=== PATIENT | male | born 1985 | race Caucasian/White ===

== ENCOUNTER 2023-07-20 07:08 | Day surgery (SDC) | payer BC ==
[2023-07-19 15:05] VITALS: BMI 28.5
[2023-07-20] MEDS ORDERED: BUPIVACAINE HCL/EPINEPHRINE/PF 30 ML VIAL IJ ONE (07:34)
[2023-07-20] MEDS ORDERED: PROPOFOL 20 ML ONE ×2 (09:07→11:48)
[2023-07-20] MEDS ORDERED: MIDAZOLAM HCL 2 MG/2 ML SINGLE DOSE VIAL ONE ×2 (09:07→10:06)
[2023-07-20] MEDS ORDERED: ePHEDrine SULFATE 50 MG/1 ML AMPULE ONE (10:49)
[2023-07-20] MEDS ORDERED: DEXAMETHASONE SOD PHOSPHATE 4 MG/1 ML VIAL ONE (10:49)
[2023-07-20] MEDS ORDERED: ceFAZolin SODIUM 1 GM VIAL ONE (10:49)
[2023-07-20] MEDS ORDERED: ONDANSETRON 4 MG/2 ML VIAL ONE (10:49)
[2023-07-20] MEDS ORDERED: KETOROLAC TROMETHAMINE 30 MG/1 ML VIAL ONE (10:49)
[2023-07-20] MEDS ORDERED: ACETAMINOPHEN INJECTION 100 ML IVPB ONE (12:12)
[2023-07-20] MEDS ORDERED: PROMETHAZINE HCL 25 MG/1 ML VIAL IVPB PRN (12:15)
[2023-07-20] MEDS ORDERED: oxyCODONE HCL 5 MG TABLET PO PRN (12:15)
[2023-07-20] MEDS ORDERED: LACTATED RINGERS SOLUTION 1,000 ML IV SCH (12:15)
[2023-07-20] MEDS: ACETAMINOPHEN 1000 MG/100 ML BAG IVPB ONE (12:16)
[2023-07-20 12:53] VITALS: RESP 16
[2023-07-20 13:50] VITALS: TEMP 97.1
[2023-07-20 13:52] VITALS: BP 115/78; PULSE 70
== END 2023-07-20 13:50 | disposition home or self-care (01) ==
LOC: FASU 07:08
PROVIDERS: ATTEND Orthopaedic Surgery
PROC: 0SQD4ZZ Repair Left Knee Joint, Percutaneous Endoscopic Approach (ICD-10-PCS; principal; 2023-07-20 10:59)
DX: S83.252A Bucket-handle tear of lateral meniscus, current injury, left knee, initial encounter (principal); S83.282A Other tear of lateral meniscus, current injury, left knee, initial encounter; X58.XXXA Exposure to other specified factors, initial encounter; Y93.9 Activity, unspecified; Y92.9 Unspecified place or not applicable
CPT/HCPCS: 94760; C1713; J0131